=== PATIENT | male | born 1965 | race Caucasian/White ===

== ENCOUNTER → 2023-11-25 11:12 | Outpatient (REF) | payer OTHER, SELFPAY | LOC: HWRCS 11:12 | PROVIDERS: ATTENDING PHYSICIAN Internal Medicine Cardiovascular Disease; FAMILY PHYSICIAN Physician Assistant Medical | DX: I25.5 Ischemic cardiomyopathy (principal); I49.01 Ventricular fibrillation; Z95.810 Presence of automatic (implantable) cardiac defibrillator; Z86.79 Personal history of other diseases of the circulatory system; I25.10 Atherosclerotic heart disease of native coronary artery without angina pectoris | CPT/HCPCS: 93306 ==

== ENCOUNTER 2024-07-08 17:58 | Emergency (ER) | payer OTHER, SELFPAY ==
[2024-07-08 18:01] VITALS: BP 144/79
[2024-07-08 18:26] LABS: Urine Albumin 2+ (Neg - Trace); Urine Bilirubin Negative (Negative); Urine Character Clear (Clear); Urine Color Yellow; Urine Glucose Negative (Negative); Urine Ketone 2+ (Negative); Urine Leukocyte Negative (Negative); Urine Nitrite Negative (Negative); Urine Occult Blood 3+ (Negative); Urine Specific Gravity 1.025 (<1.030); Urine Urobilinogen Negative (Neg - 1+)
[2024-07-08 18:27] LABS: % Basophils 0.2 % (0-2); % Eosinophils 0.5 % (0-6); % Immature Granulocytes 0.4 % (0-0.5); % Lymphocytes 6.5 % (20.5-51.1); % Monocytes 8.9 % (1.7-9.3); % Neutrophils 83.5 % (42.2-75.2); Absolute Eosinophils 0.1 10^3/uL (0-0.7); Absolute Immature Granulocytes 0.1 10^3/uL (0-0.05); Absolute Lymphocytes 0.9 10^3/uL (1.2-3.4); Absolute Monocytes 1.2 10^3/uL (0.1-0.6); Absolute Neutrophils 11.4 10^3/uL (1.4-6.5); Hematocrit 42.5 % (39.0-52.0); Hemoglobin 14.4 g/dL (13.0-18.0); Mean Corp Hgb Conc. 33.9 g/dL (33.0-37.0); Mean Corpuscular Hgb 31.6 pg (27.0-31.0); Mean Corpuscular Volume 93.2 fL (80.0-94.0); Mean Platelet Volume 9.6 fL (7.4-10.4); Nucleated Red Blood Cells % 0 % (-); Platelet Count 244 10^3/uL (130-400); Red Blood Cell Count 4.56 10^6/uL (4.70-6.10); Red Cell Dist. Width 13.2 % (11.5-14.5); White Blood Cell Count 13.6 10^3/uL (4.8-10.8)
[2024-07-08 18:36] LABS: Urine Bacteria Moderate (Negative); Urine Mucus Few; Urine Squamous Cell 0-2 /LPF (Few)
[2024-07-08 18:37] LABS: Urine Amorphous Seen
[2024-07-08 18:49] LABS: ALT (SGPT) 20 U/L (0-50); AST (SGOT) 21 U/L (17-59); Albumin 4.4 g/dl (3.5-5.0); Alkaline Phosphatase 43 U/L (38-126); Blood Urea Nitrogen 18 mg/dl (9-20); Calcium 9.3 mg/dl (8.4-10.2); Carbon Dioxide 27 mmol/L (22-30); Chloride 104 mmol/L (98-107); Glucose 152 mg/dl (70-99); Sodium 138 mmol/L (135-145)
[2024-07-08 22:05] VITALS: BP 124/75
[2024-07-08 22:33] VITALS: BMI 25.3
[2024-07-08] MEDS: DILAUDID 0.5 MG IV ×2 (22:53→23:46)
[2024-07-08] MEDS: ZOFRAN 4 MG IV (23:46)
[2024-07-08] MEDS: NSS 500 IV (23:47)
--- NOTE | 2024-07-09 00:16 | ED.GENMED ---
History of Present Illness
General
Chief Complaint: Flank Pain
Source: patient and spouse
Exam Limitations: none
Time Seen by Provider: 07/08/24 22:48
Nursing documentation reviewed up to this point in time: agreed with
History of Present Illness
History of Present Illness:
58-year-old male past medical history of heart disease pacemaker previous stent presenting to the emergency department today with concerns of left-sided flank pain vomiting over the past 2 days. Denies similar symptoms in the past.
Past History
Past History
ED Past Medical History: CAD, GERD, HTN, Hypercholesterolemia, SC and Other
ED Past Surgical History: Cardiac and Other
Social History
Tobacco: Other
Alcohol: Other
Drug: Other
Personal: Other
Living: with family
Employment: Other
Family History
Family History: Unable to obtain
Review of Systems
Review of Systems
Allergies reviewed?: Yes
All Other Systems: ROS reviewed and negative except as documented in HPI and ROS
Phy Exam
Physical Exam
Physical Exam:
GENERAL: Alert , in no apparent distress
EYE: pupils equal and reactive
NECK: Supple, no significant adenopathy.
ENT: o/p clr, mmm.
CARDIAC: Regular rate and rhythm .
LUNGS: Clear breath sounds bilaterally, no acute respiratory distress, no wheezes/rales/rhonchi
ABDOMEN: Soft, without focal tenderness, no r/g, no cvat
NEUROLOGICAL: Alert and oriented, no focal neuro deficits
SKIN: Warm and dry, skin intact.
MUSCULOSKELETAL: No edema, well perfused.
PSYCH: Normal and appropriate interaction.
Course
Orders/Labs/Results
Orders:
Orders
07/08/24 18:11
Complete Blood Count/With Diff Urgent
Comprehensive Metabolic Panel Urgent
Urinalysis Reflex To Culture Urgent
Date Specimen was Collected: 07/08/24
Time Specimen was Collected: 18:05
Urine Microscopic Reflex Cult Urgent
Urine Culture Urgent
IAM Source: U
Specimen Description:
Date Specimen was Collected: 07/08/24
Time Specimen was Collected: 18:05
07/08/24 19:18
CT Abd/pelvis W Iv Cont Urgent
Comment:
Reason For Exam: left flank pain
07/08/24 22:49
Ketorolac [Toradol] 15 mg .ROUTE .STK-MED ONE
07/08/24 22:52
HYDROmorphone [Dilaudid] 0.5 mg .ROUTE .STK-MED ONE
07/08/24 22:53
HYDROmorphone [Dilaudid] 0.5 mg IV NOW STA
07/08/24 23:28
0.9% Sodium Chloride 500 ml [Nss] 500 ml IV BOLUS
HYDROmorphone [Dilaudid] 0.5 mg IV NOW STA
Ondansetron Injectable [Zofran] 4 mg IV NOW STA
Abnormal Lab Results
07/08/24
18:11
WBC 13.6 H 10^3/uL
(4.8-10.8)
RBC 4.56 L 10^6/uL
(4.70-6.10)
MCH 31.6 H pg
(27.0-31.0)
Abs Immat Gran (auto) 0.1 H 10^3/uL
(0-0.05)
Absolute Neuts (auto) 11.4 H 10^3/uL
(1.4-6.5)
Absolute Lymphs (auto) 0.9 L 10^3/uL
(1.2-3.4)
Absolute Monos (auto) 1.2 H 10^3/uL
(0.1-0.6)
Neutrophils % 83.5 H %
(42.2-75.2)
Lymphocytes % 6.5 L %
(20.5-51.1)
Creatinine 1.5 H mg/dL
(0.7-1.3)
Glucose 152 H mg/dl
(70-99)
Urine Ketones 2+ A
(Negative)
Ur Occult Blood Reflex 3+ A
(Negative)
Urine RBC 7-10 A /HPF
(0-2)
Urine Bacteria (Reflex) Moderate A
(Negative)
Urine Albumin (Reflex) 2+ A
(Neg - Trace)
07/08/24 18:11
07/08/24 18:11
Vital Signs
Initial and Last Documented VS:
Initial Vital Signs
Temp Pulse Resp BP Pulse Ox
98.5 F 66 18 144/79 99
07/08/24 18:01 07/08/24 18:01 07/08/24 18:01 07/08/24 18:01 07/08/24 18:01
Last Documented Vital Signs
Temp Pulse Resp BP Pulse Ox
98.5 F 71 18 124/75 99
07/08/24 18:01 07/08/24 22:05 07/08/24 18:01 07/08/24 22:05 07/08/24 22:05
MDM/Problems Addressed
MDM/Problems Addressed:
58-year-old male presenting to the emergency department today with concerns of left-sided flank pain nausea and vomiting over the past 2 days. Here patient in no distress does have some minimal reproducible discomfort to the left flank. Labs
showing slightly elevated creatinine level . Urinalysis without signs of infection. CT scan showing 2 mm left UVJ calculus. Patient's symptoms well-controlled with pain medication as well as Zofran patient appears stable for outpatient follow-up
with urology. Return precautions given
*Critical Care Note
Total Time (30-74mins, 75-104mins- exclusive of procedures): Not Applicable
ED Attending Note
-
Portions of this chart may have been created with voice recognition software.� Occasional wrong word or��sound alike� substitutions may have occurred due to the inherent limitations of voice recognition software.
Discharge Plan
Departure
Patient Disposition: Home (Routine Discharge)
Date of Disposition: 07/09/24
Time of Disposition: 00:31
Patient with high blood pressure during this ER visit?: No
Condition: Good
Covid-19: Not Applicable
Discharge Problem:
Kidney stone
Instructions: Kidney Stones (DC)
Prescriptions:
New
oxycodone-acetaminophen [Endocet] 5-325 mg tablet
1 tab PO Q8H PRN (Reason: Pain) Qty: 7 0RF
ondansetron 4 mg tablet,disintegrating
4 mg PO Q6H PRN (Reason: nausea and vomiting) Qty: 7 0RF
No Action
aspirin 81 MG tablet,delayed release (DR/EC)
81 mg PO QPM
atorvastatin 40 MG tablet
40 mg PO QPM Qty: 30 0RF
spironolactone 25 MG tablet
25 mg PO DAILY Qty: 30 0RF
lisinopril 2.5 MG tablet
2.5 mg PO DAILY Qty: 30 0RF
apixaban [Eliquis] 5 MG tablet
5 mg PO BID
carvedilol 12.5 MG tablet
25 mg PO BID
hydrocodone-acetaminophen 1 TABLET tablet
1 - 2 tab PO Q4HPRN PRN (Reason: moderate to severe pain) Qty: 20 0RF
Referrals:
Jhonatan Sevilla Jr., MD [Active] - Follow up in 5-7 days
Leander Belle MD [Family Provider] -
Activity Restrictions/Additional Instructions:
You came to the emergency department today with concerns of flank pain. You are found to have a 2 mm distal stone. Please take the prescribed medications help with symptoms with hopeful passage of the stone soon. Please follow closely with
urology. Return for any worsening, new or concerning symptoms.
Interventions
Interventions:
*Risk Screen - Suicide Last Done: 07/08/24 18:01
*General Assessment Last Done: 07/08/24 18:01
*Neglect/Abuse Screening Last Done: 07/08/24 23:02
*ED- Fall Risk Assessment Last Done: 07/08/24 18:01
*ED COVID-19 Vaccine History Last Done: 07/08/24 18:01
JL-Uwvchu-Qatesyyukh Assessment Last Done: 07/08/24 23:02
ED-Male Genitourinary Assessment Last Done: 07/08/24 23:02
Discharge Date and Time
Print Language: KYRGYZ
== END 2024-07-09 01:10 | disposition home or self-care (01) ==
LOC: EMR 17:58
PROVIDERS: EMERGENCY PHYSICIAN Student in an Organized Health Care Education/Training Program; FAMILY PHYSICIAN Family Medicine
DX: N20.2 Calculus of kidney with calculus of ureter (principal); I25.10 Atherosclerotic heart disease of native coronary artery without angina pectoris; I10 Essential (primary) hypertension; E78.00 Pure hypercholesterolemia, unspecified; Z95.0 Presence of cardiac pacemaker
CPT/HCPCS: 96374; 96375; 96376; 96361; 99284; 74177; 80053; 81003; 81015; 85025; 87086; Q9967

== ENCOUNTER 2024-12-28 06:18 | Day surgery (SDC) | payer OTHER, SELFPAY ==
[2024-12-26 10:36] VITALS: BMI 25.2
[2024-12-26 11:07] LABS: Hematocrit 42.4 % (39.0-52.0); Hemoglobin 14.3 g/dL (13.0-18.0); Mean Corp Hgb Conc. 33.7 g/dL (33.0-37.0); Mean Corpuscular Volume 90.8 fL (80.0-94.0); Nucleated Red Blood Cells % 0 % (-); Platelet Count 252 10^3/uL (130-400); Red Cell Dist. Width 12.7 % (11.5-14.5)
[2024-12-26 11:20] LABS: ALT (SGPT) 34 U/L (0-50); AST (SGOT) 25 U/L (17-59); Albumin 4.8 g/dl (3.5-5.0); Alkaline Phosphatase 36 U/L (38-126); Blood Urea Nitrogen 15 mg/dl (9-20); Calcium 9.5 mg/dl (8.4-10.2); Carbon Dioxide 29 mmol/L (22-30); Chloride 102 mmol/L (98-107); Estimated Creatinine Clearance 98 ml/min; Glucose 104 mg/dl (70-99); Potassium 5.2 mmol/L (3.5-5.1); Sodium 139 mmol/L (135-145); Total Protein 7.4 g/dl (6.3-8.2); eGFR > 60.00
[2024-12-28] VITALS (15 sets, daily range): BP systolic 93–113; BP diastolic 61–75; BMI 24.2
[2024-12-28] MEDS: NSS 223 ML IV (06:58)
--- NOTE | 2024-12-28 09:16 | ITS.CL.PN ---
Package Sealer - Procedure Note
Procedure
Procedure Note:
CARDIAC CATHETERIZATION REPORT
Date of Procedure: 12/28/2024
Referring: Dr. Juanito Olea MD
Indication: VT
PROCEDURE(S)
1. left heart catheterization
2. coronary angiography
ACCESS: 6F right radial artery (closure: radial band)
CATHETERS
1. 6F JR4
2. 6F AL2 (note: both JL4 and JL3.5 were biased toward engaging a small proximal branch with resultant catheter dampening, while AL2 worked, AL3 may be the ideal catheter shape for the LM)
MODERATE SEDATION: 30 minutes of moderate sedation was utilized. An independent medical records custodian was present to assist with and help manage the patient's level of consciousness and physiologic status.
HEMODYNAMIC DATA
LV 112/8 (EDP 17) mmHg
AO 111/71 (mean 90) mmHg
CORONARY ANGIOGRAPHY
Dominance: right
LM: cloacal
LAD: large vessel giving rise to a moderate caliber diagonal branch and wrapping around the apex. There are widely patent stents in the mid to distal LAD after the D1 takeoff. Flow into the mid-distal vessel is notably slower than into the diagonal,
likely a result of high downstream microvascular resistance in this territory which has known infarcted myocardium.
Ramus: large vessel with no epicardial CAD
LCx: large vessel giving rise to a small OM1, small OM2, moderate caliber OM3, and small LPL. There is no epicardial CAD.
RCA: large vessel giving rise to a moderate caliber RPDA and small RPL branch.
RADIATION: dose 509 mGy; DAP 33.6 Gy*cm2; fluoroscopy time 13.7 min
CONCLUSIONS
1. wide patent prior LAD stents and otherwise no significant coronary artery disease in a right dominant system.
2. normal LV filling pressure and no aortic stenosis.
RECOMMENDATIONS
1. aggressive secondary prevention of coronary artery disease
2. workup and treatment for etiology of VT not related to epicardial CAD
Copy to: Dr. Juanito Olea MD (behavioral health assistant); DINAH Sanchez (PCP)
Signed: Jer Sorensen MD, PhD
== END 2024-12-28 12:00 | disposition home or self-care (01) ==
LOC: CATH 06:18
PROVIDERS: ATTENDING PHYSICIAN Student in an Organized Health Care Education/Training Program; FAMILY PHYSICIAN Family Medicine; OTHER PHYSICIAN Internal Medicine Cardiovascular Disease
DX: I25.10 Atherosclerotic heart disease of native coronary artery without angina pectoris (principal); I48.0 Paroxysmal atrial fibrillation; I25.2 Old myocardial infarction; Z86.74 Personal history of sudden cardiac arrest; I47.20 Ventricular tachycardia, unspecified; E78.5 Hyperlipidemia, unspecified; Z86.006 Personal history of melanoma in-situ; I11.0 Hypertensive heart disease with heart failure; I50.22 Chronic systolic (congestive) heart failure; Z79.82 Long term (current) use of aspirin; Z79.899 Other long term (current) drug therapy; Z88.1 Allergy status to other antibiotic agents; Z95.5 Presence of coronary angioplasty implant and graft; I45.10 Unspecified right bundle-branch block
CPT/HCPCS: 99152; 99153; 36415; 80053; 85025; 93005; 93458; C1769; C1894; Q9967

== ENCOUNTER → 2025-01-07 13:55 | Outpatient (REF) | payer OTHER, SELFPAY | LOC: HWRCS 13:55 | PROVIDERS: ATTENDING PHYSICIAN Internal Medicine Cardiovascular Disease; FAMILY PHYSICIAN Physician Assistant Medical | DX: I47.20 Ventricular tachycardia, unspecified (principal); I25.5 Ischemic cardiomyopathy; I25.10 Atherosclerotic heart disease of native coronary artery without angina pectoris | CPT/HCPCS: 93306 ==